=== PATIENT | female | born 1960 | race Caucasian/White ===

== ENCOUNTER 2021-07-02 13:28 | Emergency (ER) | payer MEDICARE, OTHER ==
[~2021-07-02] VITALS: Ht 160 cm; Wt 83.9 kg
--- NOTE | 2021-07-02 13:46 | NUR ---
Dr Nelson at the bedside for MSE.
[2021-07-02] MEDS ORDERED: IV NORMAL SALINE 1000 ML BAG IV ONE (14:00)
[2021-07-02] MEDS ORDERED: PANTOPRAZOLE SODIUM 40 MG VIAL IV ONE (14:00)
[2021-07-02] MEDS ORDERED: ONDANSETRON 4 MG/2 ML VIAL IV ONE (14:00)
[2021-07-02] MEDS ORDERED: KETOROLAC TROMETHAMINE 30 MG INJ ONE (14:05)
[2021-07-02] MEDS ORDERED: ONDANSETRON 4 MG/2 ML VIAL ONE (14:05)
[2021-07-02] MEDS ORDERED: PANTOPRAZOLE SODIUM 40 MG VIAL ONE (14:05)
[2021-07-02 14:07] LABS: *BILIRUBIN,URIN 2+ (NEGATIVE); *BLOOD, URINE NEGATIVE (NEGATIVE); *CLARITY,URINE CLEAR (CLEAR); *COLOR,URINE YELLOW (YELLOW); *KETONES,URINE 2+ (NEGATIVE); LEUKOCYTE ESTERASE ,URINE NEGATIVE (NEGATIVE); NITRITE, URINE NEGATIVE (NEGATIVE); PH,URINE 5.5 (5.0-8.0); UGLUCOSE NEGATIVE (NEGATIVE)
[2021-07-02 14:09] LABS: HEMATOCRIT 31.5 % (31.2-41.9); MEAN CORPUSCULAR HEMOGLOBIN 25.1 uug (24.7-32.8); MEAN CORPUSCULAR VOLUME 77.4 fL (75.5-95.3); PLATELET COUNT (AUTO) 546 K/uL (179-408)
[2021-07-02] MEDS ORDERED: ONDA8TAB65 MT (14:10)
[2021-07-02] MEDS ORDERED: FLUO60SO TP (14:10)
[2021-07-02] MEDS ORDERED: DICY20TA2 MT (14:10)
[2021-07-02] MEDS ORDERED: LINA145C MT (14:11)
[2021-07-02] MEDS ORDERED: MEMA14CA5 MT (14:11)
[2021-07-02] MEDS ORDERED: FLUT1DIS28 INH (14:11)
[2021-07-02] MEDS ORDERED: METF-442 MT (14:11)
[2021-07-02] MEDS ORDERED: FENO134C MT (14:11)
[2021-07-02] MEDS ORDERED: ALLO100T MT (14:11)
[2021-07-02] MEDS ORDERED: ICOS1CAP MT (14:11)
[2021-07-02] MEDS ORDERED: METO-357 MT (14:11)
[2021-07-02] MEDS ORDERED: VALS160T29 MT (14:11)
[2021-07-02] MEDS ORDERED: ASPI-1420 MT (14:11)
[2021-07-02] MEDS ORDERED: AMYL1CAP58 MT (14:11)
[2021-07-02] MEDS ORDERED: ROSU40TA23 MT (14:11)
[2021-07-02 14:14] LABS: CARBON DIOXIDE 23 mmol/L (21-32); CHLORIDE 102 mmol/L (98-107); CREATININE 0.8 mg/dL (0.6-1.3); GLUCOSE 79 mg/dL (74-106); POTASSIUM 3.7 mmol/L (3.5-5.1); UREA NITROGEN, BLOOD 12 mg/dL (7-18)
[2021-07-02] MEDS ORDERED: KETOROLAC TROMETHAMINE 30 MG INJ IVP ONE (14:15)
[2021-07-02 14:31] LABS: ALANINE AMINOTRANSFERASE 19 U/L (14-59); ALKALINE PHOSPHATASE 60 U/L (50-136); ASPARTATE AMINOTRANSFERASE 19 U/L (15-37); BILIRUBIN,DIRECT 0.1 mg/dL (0.0-0.2); BILIRUBIN,TOTAL 0.3 mg/dL (0.2-1.0); LIPASE 116 U/L (73-393); TOTAL PROTEIN, SERUM 7.6 g/dL (6.4-8.2)
[2021-07-02] MEDS ORDERED: HYDR-4209 PO ×2 (15:15→16:24)
[2021-07-02] MEDS ORDERED: DOCU250C14 PO ×2 (15:25→16:24)
[2021-07-02] MEDS ORDERED: ONDA4TAB11 PO ×2 (15:25→16:24)
--- NOTE | 2021-07-02 15:30 | NUR ---
Pt able to tolorate PO fluids, no c/o N/V.
[2021-07-02 15:49] VITALS: BP 122/88
--- NOTE | 2021-07-02 15:49 | NUR ---
IV removed. Catheter intact and site benign. Pressure and 4x4 gauze applied to site. No bleeding noted.
--- NOTE | 2021-07-02 15:50 | NUR ---
Patient discharged to home in stable condition. Written and verbal after care instructions given. Patient verbalizes understanding of instructions. Stressed follow up or return to ER for worsening s/s.
== END 2021-07-02 15:50 | disposition home or self-care (01) ==
LOC: ER 13:28
DX: K29.70 Gastritis, unspecified, without bleeding (principal); E11.9 Type 2 diabetes mellitus without complications; Z90.49 Acquired absence of other specified parts of digestive tract; Z79.82 Long term (current) use of aspirin; Z79.899 Other long term (current) drug therapy
CPT/HCPCS: 36415; 71045; 74176; 80048; 80076; 81003; 83690; 84484; 85025; 93005; 96361; 96374; 96375; 99285; C9113; J1885; J2405; J7040; A4663

== ENCOUNTER 2022-06-29 11:09 | Emergency (ER) | payer MEDICARE, OTHER ==
[~2022-06-29] VITALS: Ht 170.2 cm; Wt 77.1 kg
[~2022-06-29 11:09] MED LIST: ALLO100T MT; AMYL1CAP58 MT; ASPI-1420 MT; DICY20TA2 MT; DOCU250C14 PO; FENO134C MT; FLUO60SO TP; FLUT1DIS28 INH; HYDR-4209 PO; ICOS1CAP MT; LINA145C MT; MEMA14CA5 MT; METF-442 MT; METO-357 MT; ONDA4TAB11 PO; ONDA8TAB65 MT; ROSU40TA23 MT; VALS160T29 MT
[2022-06-29 12:01] LABS: HEMATOCRIT 41.9 % (31.2-41.9); MEAN CORPUSCULAR HEMOGLOBIN 33.2 uug (24.7-32.8); MEAN CORPUSCULAR VOLUME 98.2 fL (75.5-95.3); PLATELET COUNT (AUTO) 199 K/uL (179-408)
[2022-06-29 12:11] LABS: CARBON DIOXIDE 26 mmol/L (21-32); CHLORIDE 105 mmol/L (98-107); CREATININE 0.8 mg/dL (0.6-1.3); GLUCOSE 92 mg/dL (74-106); POTASSIUM 3.8 mmol/L (3.5-5.1); UREA NITROGEN, BLOOD 22 mg/dL (7-18)
[2022-06-29 12:20] LABS: ALANINE AMINOTRANSFERASE 21 U/L (14-59); ALKALINE PHOSPHATASE 88 U/L (50-136); ASPARTATE AMINOTRANSFERASE 8 U/L (15-37); BILIRUBIN,DIRECT 0.1 mg/dL (0.0-0.2); BILIRUBIN,TOTAL 0.5 mg/dL (0.2-1.0); LIPASE 109 U/L (73-393); TOTAL PROTEIN, SERUM 6.9 g/dL (6.4-8.2)
[2022-06-29 12:48] LABS: *BILIRUBIN,URIN NEGATIVE (NEGATIVE); *BLOOD, URINE NEGATIVE (NEGATIVE); *CLARITY,URINE CLEAR (CLEAR); *COLOR,URINE YELLOW (YELLOW); *KETONES,URINE NEGATIVE (NEGATIVE); *UROBILINOGEN,URINE 0.2 E.U./dl (NORMAL); LEUKOCYTE ESTERASE ,URINE NEGATIVE (NEGATIVE); NITRITE, URINE NEGATIVE (NEGATIVE); PH,URINE 5.5 (5.0-8.0); UGLUCOSE NEGATIVE (NEGATIVE)
[2022-06-29] MEDS ORDERED: IBUP-1955 PO (14:06)
[2022-06-29] MEDS ORDERED: IBUPROFEN 600 MG TABLET PO ONE (14:15)
[2022-06-29] MEDS ORDERED: IBUPROFEN 600 MG TABLET ONE (14:27)
== END 2022-06-29 14:41 | disposition home or self-care (01) ==
LOC: ER 11:09
DX: K80.50 Calculus of bile duct without cholangitis or cholecystitis without obstruction (principal); E11.9 Type 2 diabetes mellitus without complications; Z90.49 Acquired absence of other specified parts of digestive tract; Z79.82 Long term (current) use of aspirin; Z79.899 Other long term (current) drug therapy
CPT/HCPCS: 36415; 83690; 84484; 85025; 93005; A4663